=== PATIENT | male | born 1955 | race Caucasian/White ===

== ENCOUNTER 2019-08-12 15:00 | Emergency (ER) | payer MEDICARE ==
[~2019-08-12] VITALS: Ht 170.2 cm; Wt 68.2 kg
[~2019-08-12 15:00] MED LIST: ALLO100T PO; ASPI-416 PO; CYAN1TAB41 PO; EZET10TA21 PO; FENO134C9 PO; FISH1CAP15 PO; FOLI0.4T2 PO; METF1000 PO; METO50TA17 PO; OMEP-50 PO; PARO-62 PO; SIMV20TA5 PO
[2019-08-12 15:16] VITALS: BP 122/85
--- NOTE | 2019-08-12 16:43 | NUR ---
assumed care, no report, returned from lunch
[2019-08-12] MEDS ORDERED: bacitracin 15gm ointment TP ONE (16:45)
--- NOTE | 2019-08-12 17:07 | NUR ---
CLEANED RIGH ELBOW WITH 100 ML NS AND CHLORHEXIDINE WIPES, BACITRACIN APPLIED TO RITH ELBOW ABRASION, ELBOW RED AND VERY SWOLLEN. THEN NON STICK DRESSING AND COBAN PER COLBY ROGERS
== END 2019-08-12 17:08 | disposition home or self-care (01) ==
LOC: ER 15:00
DX: S50.01XA Contusion of right elbow, initial encounter (principal); M25.421 Effusion, right elbow; F17.200 Nicotine dependence, unspecified, uncomplicated; I25.10 Atherosclerotic heart disease of native coronary artery without angina pectoris; E11.9 Type 2 diabetes mellitus without complications; Z95.1 Presence of aortocoronary bypass graft; Z79.899 Other long term (current) drug therapy; Z90.49 Acquired absence of other specified parts of digestive tract; Z98.890 Other specified postprocedural states; Z79.82 Long term (current) use of aspirin; Z79.84 Long term (current) use of oral hypoglycemic drugs; W18.39XA Other fall on same level, initial encounter; Y93.89 Activity, other specified; Y92.89 Other specified places as the place of occurrence of the external cause; Y99.8 Other external cause status
CPT/HCPCS: 73080; 99283

== ENCOUNTER 2020-04-05 09:42 | Day surgery (SDC) | payer MEDICARE ==
[2020-04-02 10:54] LABS: BASOPHILS # (AUTO) 0.1 X10'3 (0-0.2); BASOPHILS % (AUTO) 1.4 % (0-1); EOSINOPHILS # (AUTO) 0.4 X10'3 (0-0.9); HEMATOCRIT 48.1 % (42.0-52.0); HEMOGLOBIN 16.3 g/dl (14.0-17.9); LYMPHOCYTES # (AUTO) 2.9 X10'3 (1.1-4.8); LYMPHOCYTES % (AUTO) 30.4 % (21-51); MEAN CORPUSCULAR HEMOGLOBIN 30.8 PG (27.0-31.0); MEAN CORPUSCULAR HGB CONC 33.9 g/dL (33.0-36.5); MEAN CORPUSCULAR VOLUME 90.9 FL (78-98); MEAN PLATELET VOLUME 7.4 FL (7.4-10.4); MONOCYTES # (AUTO) 0.5 X10'3 (0-0.9); MONOCYTES % (AUTO) 5.6 % (2-12); NEUTROPHILS # (AUTO) 5.5 X10'3 (1.8-7.7); NEUTROPHILS % (AUTO) 58.6 % (42-75); PLATELET COUNT 290 X10'3 (140-440); RED BLOOD COUNT 5.29 X10'6 (4.70-6.10); RED CELL DISTRIBUTION WIDTH 13.2 % (11.5-14.5); WHITE BLOOD COUNT 9.4 X10'3 (4.5-11.0)
[2020-04-02 11:09] LABS: PARTIAL THROMBOPLASTIN TIME 28 SECONDS (22-32)
[2020-04-02 11:11] LABS: ALBUMIN 3.8 G/DL (3.4-5.0); ANION GAP 12 (8-16); BLOOD UREA NITROGEN 20 MG/DL (7-18); BUN/CREATININE RATIO 17.2 (5.4-32.0); CALCIUM 8.9 MG/DL (8.5-10.1); CHLORIDE 105 MMOL/L (99-107); CREATININE 1.16 MG/DL (0.60-1.10); GLUCOSE 161 MG/DL (70-104); POTASSIUM 4.4 MMOL/L (3.5-5.1); SODIUM 140 MMOL/L (135-145); TOTAL CARBON DIOXIDE 23.1 MMOL/L (24-32); eGFR 63 ML/MIN
[~2020-04-05] VITALS: Ht 170.2 cm; Wt 70.7 kg
[2020-04-05] VITALS (10 sets, daily range): BP systolic 97–139; BP diastolic 57–118
[~2020-04-05 09:42] MED LIST changes: -EZET10TA21 PO; +EZET10TA6 PO; +SIMV-42 PO; -SIMV20TA5 PO
[2020-04-05] MEDS ORDERED: midazolam 2 mg/2 ml injection ONE (10:30)
[2020-04-05] MEDS ORDERED: fentaNYL/PF 50MCG/1 ML 2ML syringe ONE (10:30)
[2020-04-05] MEDS ORDERED: iohexol 350MG/ML 100ml bottle IV ONE (10:31)
[2020-04-05] MEDS ORDERED: normal saline 1,000 ML IV SCH (10:35)
[2020-04-05] MEDS ORDERED: diphenhydrAMINE 25mg capsule PO PRN (10:35)
[2020-04-05] MEDS ORDERED: LORazepam 0.5 MG tablet PO PRN (10:35)
[2020-04-05] MEDS ORDERED: LIDOcaine 1% (10mg/ml)w/preservative injection 20ml MDV ONE (10:35)
[2020-04-05] MEDS ORDERED: TRAZ-256 PO (10:45)
[2020-04-05] MEDS ORDERED: UBID100C16 PO (10:45)
[2020-04-05] MEDS ORDERED: iohexol 350 MG/ML 50ML vial IV ONE ×2 (11:11→11:41)
[2020-04-05] MEDS ORDERED: heparin 1,000unit/ml 10ml vial 10 ML ONE (11:21)
[2020-04-05] MEDS ORDERED: ticagrelor 90mg tablet ONE (11:51)
[2020-04-05] MEDS ORDERED: OXAZEpam 15mg capsule PO PRN (12:30)
[2020-04-05] MEDS ORDERED: HYDROcodone/acetaminophen 10/325mg tab PO PRN (12:30)
[2020-04-05] MEDS ORDERED: HYDROcodone/acetaminophen 5mg/325mg tablet PO PRN (12:30)
[2020-04-05] MEDS ORDERED: ondansetron/PF 4mg/2ml inj IV PRN (12:30)
[2020-04-05] MEDS ORDERED: proCHLORperazine 10 MG/2 ml inj IV PRN (12:30)
== END 2020-04-05 16:50 | disposition home or self-care (01) ==
LOC: SSTAY O 09:42
PROVIDERS: ATTEND Internal Medicine Interventional Cardiology
DX: R94.39 Abnormal result of other cardiovascular function study (principal); I25.10 Atherosclerotic heart disease of native coronary artery without angina pectoris; G47.33 Obstructive sleep apnea (adult) (pediatric); M10.9 Gout, unspecified; Z86.73 Personal history of transient ischemic attack (TIA), and cerebral infarction without residual deficits; Z79.899 Other long term (current) drug therapy; Z95.1 Presence of aortocoronary bypass graft; Z79.01 Long term (current) use of anticoagulants; R00.1 Bradycardia, unspecified; E11.9 Type 2 diabetes mellitus without complications; R07.9 Chest pain, unspecified; R06.02 Shortness of breath
CPT/HCPCS: 36415; 80048; 85025; 85610; 85730; 93005; 93459; 93567; C1725; C1751; C1760; C1769; C1874; C9600; J1644; J2001; J2250; J3010; Q9967; 99152; 99153; A4620; A6258; C9601

== ENCOUNTER 2023-04-16 17:55 | Emergency (ER) | payer MEDICARE ==
[~2023-04-16] VITALS: Ht 170.2 cm; Wt 69.1 kg
[~2023-04-16 17:55] MED LIST changes: -ALLO100T PO; -CYAN1TAB41 PO; -EZET10TA6 PO; -FENO134C9 PO; -FOLI0.4T2 PO; -METO50TA17 PO; -OMEP-50 PO; -PARO-62 PO; +TRAZ-256 PO; +UBID100C16 PO
[2023-04-16 17:59] VITALS: BP 129/75
[2023-04-16] MEDS ORDERED: bacitracin 15gm ointment TP ONE (19:35)
[2023-04-16] MEDS ORDERED: LIDOcaine 1% 30ml preserv. free vial IJ ONE (19:35)
== END 2023-04-16 20:11 | disposition home or self-care (01) ==
LOC: ER 17:56
DX: S61.211A Laceration without foreign body of left index finger without damage to nail, initial encounter (principal); I51.9 Heart disease, unspecified; E11.9 Type 2 diabetes mellitus without complications; Z90.49 Acquired absence of other specified parts of digestive tract; Z79.899 Other long term (current) drug therapy; X58.XXXA Exposure to other specified factors, initial encounter; Y93.89 Activity, other specified; Y92.89 Other specified places as the place of occurrence of the external cause; Y99.8 Other external cause status
CPT/HCPCS: 12001; 99282; A6449